=== PATIENT | female | born 1995 | race African-American/Black ===

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

== ENCOUNTER 2017-07-03 08:27 | Inpatient (IN) ==
[2017-07-03] MEDS ORDERED: BUTORPHANOL 2 MG/ML VIAL IV PRN (09:56)
[2017-07-03] MEDS ORDERED: ONDANSETRON 4 MG/2 ML VIAL IV PRN (09:56)
[2017-07-03] MEDS ORDERED: diphenhydrAMINE 50 MG/1 ML VIAL IV PRN ×2 (09:59)
[2017-07-03] MEDS ORDERED: hydrOXYzine HCL 25 MG/1 ML VIAL IM PRN (09:59)
[2017-07-03] MEDS ORDERED: LACTATED RINGERS 1,000 ML IV ONE (09:59)
[2017-07-03] MEDS ORDERED: PROMETHAZINE 25 MG/1 ML VIAL IM ONE (09:59)
[2017-07-03] MEDS ORDERED: FAMOTIDINE 20 MG/2 ML VIAL IV ONE (09:59)
[2017-07-03] MEDS ORDERED: CITRIC ACID/SODIUM CITRATE 30 ML UDCUP PO ONE (09:59)
[2017-07-03] MEDS ORDERED: ePHEDrine 50 MG/ML AMP IV PRN (09:59)
[2017-07-03] MEDS ORDERED: LACTATED RINGERS 1,000 ML IV SCH (10:00)
[2017-07-03] MEDS ORDERED: fentaNYL 2 MCG/ROPIV 0.2% EPID 150 ML EPIDURAL SCH (10:00)
[2017-07-03] MEDS ORDERED: OXYTOCIN/LR 20 UNIT/1,000 ML BAG IV SCH (10:00)
[2017-07-03 10:37] LABS: Basophils % 0.3 % (0.0-0.8); Eosinophils # 0.2 10*3/uL (0.0-0.87); Eosinophils % 2.2 % (0.00-10.9); Hematocrit 30.7 VOL% (35.7-47.0); Hemoglobin 9.4 GM/DL (12.0-16.0); Immature Granulocytes % 0.8 %; Immature Granulocytes Absolute 0.07 #; Lymphocytes # 1.8 10*3/uL (1.4-4.0); Lymphocytes % 20.4 % (21.3-54.2); Mean Corpuscular HGB Conc 30.6 GM/DL (32-36); Mean Corpuscular Hemoglobin 26 PG (27-34); Mean Corpuscular Volume 84.8 FL (87-102); Mean Platelet Volume 12.1 FL (9.6-12.0); Monocytes # 0.7 10*3/uL (0.11-0.8); Monocytes % 8.2 % (1.7-12.7); Neutrophils # 5.9 10*3/uL (1.4-7.4); Neutrophils % 68.1 % (38.7-73.9); Platelet Count 163 T/CUMM (130-400); Red Blood Count 3.62 MC/CUMM (3.8-5.5); Red Cell Distribution Width 14.7 % (9.3-17.3); White Blood Count 8.7 T/CUMM (4-12)
[2017-07-03 11:04] LABS: Albumin 2.8 G/DL (3.4-5.0); Bilirubin,Total 0.5 MG/DL (0.2-1.0); Calcium 8.7 MG/DL (8.5-10.1); Osmolality,Calculated 269.7 MOS/KG (273-304); Total Protein 6.1 G/DL (6.4-8.3); Uric Acid 3.5 MG/DL (2.6-6.0)
[2017-07-03] MEDS ORDERED: METHYLERGONOVINE 0.2 MG/1 ML AMP ONE (14:09)
[2017-07-03] MEDS ORDERED: LIDOCAINE 1% 50 ML VIAL ONE (14:09)
[2017-07-03 14:38] LABS: Apearance,Urine CLEAR (Clear); Bilirubin,Urine Negative (Negative); Blood, Urine Negative (Negative); Glucose,Urine (UA) Negative (Negative); Hyaline Casts,Urine 1 /LPF (0-3); Ketones,Urine 20 mg/dL (Negative); Mucus,Urine Occasional /LPF (Occasional); Nitrite,Urine Negative (Negative); Protein,Urine Negative; RBC,Urine <1 /HPF (0-4); Squamous Epithelial Cell,Urine Occasional /HPF (0-10); Urine Color Yellow (Yellow); Urine Specific Gravity 1.009 (1.001-1.035); Urine Urobilinogen < 2.0 EU/DL (0.2-1.0); WBC,Urine <1 /HPF (0-6)
[2017-07-03] MEDS ORDERED: IBUPROFEN 800 MG TABLET PO ONE (19:23)
[2017-07-03] MEDS ORDERED: DIPH/TET/ACEL PERT BOOSTER VACCINE 0.5 ML VIAL IM ONE (19:38)
[2017-07-03] MEDS ORDERED: oxyCODONE/ACETAMINOPHEN 5-325 MG TABLET PO PRN (19:38)
[2017-07-03] MEDS ORDERED: RHO(D) IMMUNE GLOBULIN 300 MCG SYRINGE IM ONE (19:38)
[2017-07-03] MEDS ORDERED: MEASLES/MUMPS/RUBELLA VACCINE 0.5 ML VIAL SUBCUT ONE (19:38)
[2017-07-03] MEDS ORDERED: HYDROCORTISONE 2.5% RECTAL CREAM 30 GM TUBE TOP PRN (19:38)
[2017-07-03] MEDS ORDERED: BENZOCAINE 20%/MENTHOL 0.5% SPRAY 56 GM CAN TOP PRN (19:38)
[2017-07-03] MEDS ORDERED: WITCH HAZEL PADS 100/JAR TOP PRN (19:38)
[2017-07-03] MEDS ORDERED: ACETAMINOPHEN 325 MG TABLET PO PRN (19:38)
[2017-07-03] MEDS ORDERED: LANOLIN 50% CREAM 0.3 OZ TUBE TOP PRN (19:38)
[2017-07-03] MEDS ORDERED: ACETAMINOPHEN/CODEINE 300-30 MG TABLET PO PRN (19:38)
[2017-07-03] MEDS ORDERED: BISACODYL 10 MG SUPP RECTAL PRN (19:38)
[2017-07-03] MEDS: oxyCODONE/ACETAMINOPHEN 5-325 MG TABLET PO PRN (20:26)
[2017-07-03] MEDS: DOCUSATE SODIUM 100 MG CAPSULE PO SCH (20:42)
[2017-07-04 06:36] LABS: Basophils # 0.1 10*3/uL (0.0-0.2); Basophils % 0.5 % (0.0-0.8); Eosinophils # 0.2 10*3/uL (0.0-0.87); Eosinophils % 2.3 % (0.00-10.9); Hematocrit 28.1 VOL% (35.7-47.0); Hemoglobin 8.9 GM/DL (12.0-16.0); Immature Granulocytes % 0.8 %; Immature Granulocytes Absolute 0.08 #; Lymphocytes # 2.3 10*3/uL (1.4-4.0); Lymphocytes % 22.9 % (21.3-54.2); Mean Corpuscular HGB Conc 31.7 GM/DL (32-36); Mean Corpuscular Hemoglobin 26 PG (27-34); Mean Corpuscular Volume 83.1 FL (87-102); Mean Platelet Volume 12.1 FL (9.6-12.0); Monocytes # 1.1 10*3/uL (0.11-0.8); Monocytes % 11.2 % (1.7-12.7); NRBC # 0.02 10*3/uL; Neutrophils # 6.1 10*3/uL (1.4-7.4); Neutrophils % 62.3 % (38.7-73.9); Platelet Count 154 T/CUMM (130-400); Red Blood Count 3.38 MC/CUMM (3.8-5.5); Red Cell Distribution Width 14.6 % (9.3-17.3); White Blood Count 9.9 T/CUMM (4-12)
[2017-07-04] MEDS: DOCUSATE SODIUM 100 MG CAPSULE PO SCH ×2 (08:18→20:47)
[2017-07-04] MEDS: IBUPROFEN 800 MG TABLET PO PRN ×2 (08:19→17:37)
[2017-07-04] MEDS: oxyCODONE/ACETAMINOPHEN 5-325 MG TABLET PO PRN ×2 (08:19→17:37)
[2017-07-05] MEDS: oxyCODONE/ACETAMINOPHEN 5-325 MG TABLET PO PRN (02:47)
[2017-07-05] MEDS: IBUPROFEN 800 MG TABLET PO PRN (02:47)
[2017-07-05 07:41] VITALS: BP 118/74
[2017-07-05] MEDS: DOCUSATE SODIUM 100 MG CAPSULE PO SCH (10:18)
== END 2017-07-05 13:10 | disposition home or self-care (01) | DRG 775 ==
LOC: N.LDOUT 08:27 → EDSTATUS 08:27 → N.LD 09:01 → N.OB 19:35
PROVIDERS: ADMIT Obstetrics & Gynecology; ATTEND Obstetrics & Gynecology

== ENCOUNTER 2018-11-19 05:53 | Inpatient (IN) ==
[2018-11-19] MEDS ORDERED: BUTORPHANOL 2 MG/ML VIAL IV PRN (07:36)
[2018-11-19] MEDS ORDERED: TERBUTALINE 1 MG/1 ML VIAL SUBCUT PRN (07:36)
[2018-11-19] MEDS ORDERED: miSOPROStol 200 MCG TABLET VAG PRN (07:36)
[2018-11-19] MEDS ORDERED: CARBOPROST TROMETHAMINE 250 MCG/ML AMP IM PRN (07:36)
[2018-11-19] MEDS ORDERED: LACTATED RINGERS 500 ML IV PRN (07:36)
[2018-11-19] MEDS ORDERED: ONDANSETRON 4 MG/2 ML VIAL IV PRN (07:36)
[2018-11-19] MEDS ORDERED: LIDOCAINE 1% 50 ML VIAL MISC INJ ONE (07:36)
[2018-11-19] MEDS ORDERED: OXYTOCIN/LR 0 UNIT/0 ML BAG IV ONE (07:43)
[2018-11-19 07:55] LABS: Basophils % 0.5 % (0.0-0.8); Eosinophils # 0.2 10*3/uL (0.0-0.87); Eosinophils % 2.1 % (0.00-10.9); Hematocrit 33.5 VOL% (35.7-47.0); Hemoglobin 10.2 GM/DL (12.0-16.0); Immature Granulocytes Absolute 0.08 #; Lymphocytes # 1.9 10*3/uL (1.4-4.0); Lymphocytes % 22.7 % (21.3-54.2); Mean Corpuscular HGB Conc 30.4 GM/DL (32-36); Mean Corpuscular Volume 90.8 FL (87-102); Mean Platelet Volume 12.2 FL (9.6-12.0); Monocytes % 7.6 % (1.7-12.7); Neutrophils % 66.1 % (38.7-73.9); Platelet Count 121 T/CUMM (130-400); Red Blood Count 3.69 MC/CUMM (3.8-5.5); Red Cell Distribution Width 13.3 % (9.3-17.3); White Blood Count 8.2 T/CUMM (4-12)
[2018-11-19] MEDS ORDERED: LACTATED RINGERS 1,000 ML IV SCH ×2 (08:00→09:00)
[2018-11-19] MEDS ORDERED: OXYTOCIN/LR 20 UNIT/1,000 ML BAG IV SCH (08:00)
[2018-11-19] MEDS ORDERED: AMPICILLIN INJ 2,000 MG in SODIUM CHLORIDE 0.9% 100 ML IV ONE (08:09)
[2018-11-19 08:29] LABS: Albumin 2.5 G/DL (3.4-5.0); Bilirubin,Total 0.4 MG/DL (0.2-1.0); Calcium 8.7 MG/DL (8.5-10.1); Osmolality,Calculated 274.4 MOS/KG (273-304); Total Protein 6.4 G/DL (6.4-8.3)
[2018-11-19] MEDS ORDERED: CITRIC ACID/SODIUM CITRATE 30 ML UDCUP PO ONE (08:56)
[2018-11-19] MEDS ORDERED: FAMOTIDINE 20 MG/2 ML VIAL IV ONE (08:56)
[2018-11-19] MEDS ORDERED: ePHEDrine 50 MG/ML AMP IV PRN (08:56)
[2018-11-19] MEDS ORDERED: LACTATED RINGERS 1,000 ML IV ONE (08:56)
[2018-11-19] MEDS ORDERED: diphenhydrAMINE 50 MG/1 ML VIAL IV PRN ×2 (08:57)
[2018-11-19] MEDS ORDERED: hydrOXYzine HCL 25 MG/1 ML VIAL IM PRN (08:57)
[2018-11-19] MEDS ORDERED: NALOXONE 0.4 MG/ML VIAL IV PRN (08:57)
[2018-11-19] MEDS ORDERED: PROMETHAZINE 25 MG/1 ML VIAL IM ONE (08:57)
[2018-11-19] MEDS ORDERED: fentaNYL 2 MCG/ROPIV 0.2% EPID 100 ML EPIDURAL SCH (09:00)
[2018-11-19] MEDS ORDERED: CARBOPROST TROMETHAMINE 250 MCG/ML AMP IM ONE (10:40)
[2018-11-19] MEDS ORDERED: miSOPROStol 200 MCG TABLET ONE (10:40)
[2018-11-19] MEDS ORDERED: OXYTOCIN/LR 20 UNIT/1,000 ML BAG IV ONE ×3 (10:40→15:18)
[2018-11-19] MEDS ORDERED: TRANEXAMIC ACID 1,000 MG/10 ML VIAL ONE (10:40)
[2018-11-19] MEDS ORDERED: METHYLERGONOVINE 0.2 MG/1 ML AMP ONE (10:40)
[2018-11-19 10:57] LABS: Apearance,Urine CLEAR (Clear); Bacteria,Urine Occasional /HPF (Few); Bilirubin,Urine Negative (Negative); Blood, Urine Small mg/dL (Negative); Glucose,Urine (UA) Negative (Negative); Ketones,Urine Negative (Negative); Mucus,Urine Occasional /LPF (Occasional); Nitrite,Urine Negative (Negative); Protein,Urine Negative; RBC,Urine 16 /HPF (0-4); Squamous Epithelial Cell,Urine Occasional /HPF (0-10); Urine Color Yellow (Yellow); Urine Specific Gravity 1.014 (1.001-1.035); Urine Urobilinogen < 2.0 EU/DL (0.2-1.0); WBC,Urine 1 /HPF (0-6)
[2018-11-19] MEDS ORDERED: AMPICILLIN INJ 1,000 MG in SODIUM CHLORIDE 0.9% 100 ML IV SCH (12:30)
[2018-11-19] MEDS ORDERED: oxyCODONE/ACETAMINOPHEN 5-325 MG TABLET PO PRN (15:18)
[2018-11-19] MEDS ORDERED: LANOLIN 50% CREAM 0.3 OZ TUBE TOP PRN (15:18)
[2018-11-19] MEDS ORDERED: RHO(D) IMMUNE GLOBULIN 300 MCG SYRINGE IM ONE (15:18)
[2018-11-19] MEDS ORDERED: BISACODYL 10 MG SUPP RECTAL PRN (15:18)
[2018-11-19] MEDS ORDERED: WITCH HAZEL PADS 100/JAR TOP PRN (15:18)
[2018-11-19] MEDS ORDERED: MEASLES/MUMPS/RUBELLA VACCINE 0.5 ML VIAL SUBCUT ONE (15:18)
[2018-11-19] MEDS ORDERED: BENZOCAINE 20%/MENTHOL 0.5% SPRAY 56 GM CAN TOP PRN (15:18)
[2018-11-19] MEDS ORDERED: HYDROCORTISONE 2.5% RECTAL CREAM 30 GM TUBE TOP PRN (15:18)
[2018-11-19] MEDS ORDERED: ACETAMINOPHEN 325 MG TABLET PO PRN (15:18)
[2018-11-19] MEDS ORDERED: DIPH/TET/ACEL PERT BOOSTER VACCINE 0.5 ML VIAL IM ONE (15:18)
[2018-11-19] MEDS: IBUPROFEN 800 MG TABLET PO PRN (16:50)
[2018-11-19] MEDS: DOCUSATE SODIUM 100 MG CAPSULE PO SCH (21:13)
[2018-11-19] MEDS: oxyCODONE/ACETAMINOPHEN 5-325 MG TABLET PO PRN (22:40)
[2018-11-20] MEDS: IBUPROFEN 800 MG TABLET PO PRN ×3 (05:12→19:49)
[2018-11-20 05:34] LABS: Basophils % 0.3 % (0.0-0.8); Eosinophils # 0.3 10*3/uL (0.0-0.87); Eosinophils % 2.7 % (0.00-10.9); Hematocrit 29.9 VOL% (35.7-47.0); Hemoglobin 9.6 GM/DL (12.0-16.0); Immature Granulocytes % 0.8 %; Immature Granulocytes Absolute 0.09 #; Lymphocytes # 2.3 10*3/uL (1.4-4.0); Lymphocytes % 21.5 % (21.3-54.2); Mean Corpuscular HGB Conc 32.1 GM/DL (32-36); Mean Corpuscular Volume 88.2 FL (87-102); Mean Platelet Volume 12.2 FL (9.6-12.0); Monocytes % 7.9 % (1.7-12.7); Neutrophils % 66.8 % (38.7-73.9); Platelet Count 118 T/CUMM (130-400); Red Blood Count 3.39 MC/CUMM (3.8-5.5); Red Cell Distribution Width 13.4 % (9.3-17.3); White Blood Count 10.8 T/CUMM (4-12)
[2018-11-20] MEDS: DOCUSATE SODIUM 100 MG CAPSULE PO SCH ×2 (08:59→21:00)
[2018-11-20] MEDS: FERROUS SULFATE 325 MG TABLET PO SCH ×2 (13:47→21:00)
[2018-11-20] MEDS: oxyCODONE/ACETAMINOPHEN 5-325 MG TABLET PO PRN (21:01)
[2018-11-21] MEDS: IBUPROFEN 800 MG TABLET PO PRN ×2 (04:54→12:12)
[2018-11-21 07:19] VITALS: BP 113/61
[2018-11-21] MEDS: FERROUS SULFATE 325 MG TABLET PO SCH (08:35)
[2018-11-21] MEDS: DOCUSATE SODIUM 100 MG CAPSULE PO SCH (08:35)
== END 2018-11-21 13:10 | disposition home or self-care (01) | DRG 807 ==
LOC: N.LDOUT 05:53 → N.LD 05:55 → N.OB 15:17
PROVIDERS: ADMIT Obstetrics & Gynecology; ATTEND Obstetrics & Gynecology